=== PATIENT | male | born 1970 | race African-American/Black ===

== ENCOUNTER 2016-06-15 11:51 | Observation (INO) | payer BC ==
--- NOTE | 2016-06-15 12:33 | ER Document Report ---
ED Medical Screen (RME) - General Stated Complaint: CHEST PAIN Notes: Patient complains of left-sided chest pain that started about 2 hours ago, states it feels tight. Denies shortness of breath, nausea, vomiting, or diarrhea. States he has had intermittent episodes of this over the last 2 weeks. Denies recent illness. Denies past medical history. Patient was already given aspirin at urgent care. I have greeted and performed a rapid initial assessment of this patient. A comprehensive ED assessment and evaluation of the patient, analysis of test results and completion of the medical decision making process will be conducted by additional ED providers. - Related Data Allergies/Adverse Reactions: No Known Allergies Allergy (Unverified 06/15/16 12:33) Physical Exam - Vital signs Vitals: Temp Pulse Resp BP Pulse Ox 97.9 F 66 18 144/77 H 100 06/15/16 11:58 06/15/16 11:58 06/15/16 11:58 06/15/16 11:58 06/15/16 11:58 - Cardiovascular Rhythm: Regular Heart sounds: Normal auscultation Course - Vital Signs Vital signs: Temp Pulse Resp BP Pulse Ox 97.9 F 66 18 144/77 H 100 06/15/16 11:58 06/15/16 11:58 06/15/16 11:58 06/15/16 11:58 06/15/16 11:58
[2016-06-15 13:13] LABS: ABSOLUTE EOSINOPHILS # (AUTO) 0.2 10^3/uL (0.0-0.6); ABSOLUTE MONOCYTES (AUTO) 0.3 10^3/uL (0.1-1.4); ABSOLUTE NEUT (AUTO) 1.7 10^3/uL (1.7-8.2); BASOPHILS % (AUTO) 0.9 % (0-2); EOSINOPHILS % (AUTO) 5.2 % (0-6); HEMATOCRIT 42.4 % (37.9-51.0); HGB HCT DIFFERENCE -0.4; LYMPHOCYTES % (AUTO) 46.6 % (13-45); MEAN CORPUSCULAR HEMOGLOBIN 27.7 pg (27.0-33.4); MEAN CORPUSCULAR HGB CONC 32.9 g/dL (32.0-36.0); MEAN CORPUSCULAR VOLUME 84 fl (80-97); MONOCYTES % (AUTO) 7.7 % (3-13); RED BLOOD COUNT 5.04 10^6/uL (4.35-5.55); RED CELL DISTRIBUTION WIDTH 13.7 % (11.5-14.0); SEGMENTED NEUTROPHILS % (AUTO) 39.6 % (42-78); WHITE BLOOD COUNT 4.2 10^3/uL (4.0-10.5)
[2016-06-15 13:30] LABS: ALANINE AMINOTRANSFERASE 36 U/L (21-72); ALKALINE PHOSPHATASE 65 U/L (38-126); ANION GAP 8 (5-19); ASPARTATE AMINO TRANSFERASE 22 U/L (17-59); BILIRUBIN,TOTAL 0.4 mg/dL (0.2-1.3); BLOOD UREA NITROGEN 16 mg/dL (7-20); CALCIUM 9.5 mg/dL (8.4-10.2); CARBON DIOXIDE 26 mmol/L (22-30); CHLORIDE 104 mmol/L (98-107); CREATINE KINASE 198 U/L (55-170); CREATININE RESULT 1.07 mg/dL (0.52-1.25); GLUCOSE 84 mg/dL (75-110); POTASSIUM 4.5 mmol/L (3.6-5.0); SODIUM 138.4 mmol/L (137-145); TOTAL PROTEIN 6.9 g/dL (6.3-8.2)
[2016-06-15 13:42] LABS: CREATINE KINASE MB 1.52 ng/mL (<4.55)
[2016-06-15 13:46] LABS: TROPONIN I < 0.012 ng/mL
[2016-06-15 15:02] LABS: PROTHROMBIN TIME 12.2 SEC (11.4-15.4)
--- NOTE | 2016-06-15 15:35 | ER Document Report ---
ED General - General Chief Complaint: Chest Pain Stated Complaint: CHEST PAIN Mode of Arrival: Ambulatory Information source: Patient Notes: 45-year-old male no previous cardiac history however does have a family history of cardiac problems presents with complaints of left-sided chest tightness associated with exertion. Patient notes symptoms have been intermittent over the past 2 weeks, prior to this he was able to exercise with no difficulty but feels now that it is restricted. Patient does have quite a bit of travel both international and throughout the country TRAVEL OUTSIDE OF THE [place] IN LAST 30 DAYS: No - HPI Onset: Other Onset/Duration: Intermittent Quality of pain: Pressure Severity: Mild Pain Level: 1 Associated symptoms: Chest pain, Shortness of breath Exacerbated by: Walking Relieved by: Denies Similar symptoms previously: No Recently seen / treated by doctor: No - Related Data Allergies/Adverse Reactions: No Known Allergies Allergy (Unverified 06/15/16 12:33) Past Medical History - Social History Smoking Status: Never Smoker Cigarette use (# per day): No Chew tobacco use (# tins/day): No Smoking Education Provided: No Frequency of alcohol use: None Drug Abuse: None Family History: CAD Patient has suicidal ideation: No Patient has homicidal ideation: No Renal/ Medical History: Denies: Hx Peritoneal Dialysis Review of Systems - Review of Systems Notes: REVIEW OF SYSTEMS: CONSTITUTIONAL : Denies fever, chills, or sweats. Denies recent illness. EENT: Denies eye, ear, throat, or mouth pain or symptoms. Denies nasal or sinus congestion or discharge. Denies throat, tongue, or mouth swelling or difficulty swallowing. CARDIOVASCULAR: Admits chest pain RESPIRATORY: Admits shortness of breath GASTROINTESTINAL: Denies abdominal pain or distention. Denies nausea, vomiting , or diarrhea. Denies blood in vomitus, stools, or per rectum. Denies black, tarry stools. Denies constipation. GENITOURINARY: Denies difficulty urinating, painful urination, burning, frequency, blood in urine, or discharge. MUSCULOSKELETAL: Denies back or neck pain or stiffness. Denies joint pain or swelling. SKIN: Denies rash, lesions or sores. HEMATOLOGIC : Denies easy bruising or bleeding. LYMPHATIC: Denies swollen, enlarged glands. NEUROLOGICAL: Denies confusion or altered mental status. Denies passing out or loss of consciousness. Denies dizziness or lightheadedness. Denies headache. Denies weakness or paralysis or loss of use of either side. Denies problems with gait or speech. Denies sensory loss, numbness, or tingling. Denies seizures. PSYCHIATRIC: Denies anxiety or stress. Denies depression, suicidal ideation, or homicidal ideation. ALL OTHER SYSTEMS REVIEWED AND NEGATIVE. Dictation was performed using [employer] voice recognition software PHYSICAL EXAMINATION: GENERAL: Well-appearing, well-nourished and in no acute distress. HEAD: Atraumatic, normocephalic. EYES: Pupils equal round and reactive to light, extraocular movements intact, sclera anicteric, conjunctiva are normal. ENT: Nares patent, oropharynx clear without exudates. Moist mucous membranes. NECK: Normal range of motion, supple without lymphadenopathy LUNGS: Breath sounds clear to auscultation bilaterally and equal. No wheezes rales or rhonchi. HEART: Regular rate and rhythm without murmurs ABDOMEN: Soft, nontender, nondistended abdomen. No guarding, no rebound. No masses appreciated. Musculoskeletal: Normal range of motion, no pitting or edema. No cyanosis. NEUROLOGICAL: Cranial nerves grossly intact. Normal speech, normal gait. Normal sensory, motor exams PSYCH: Normal mood, normal affect. SKIN: Warm, Dry, normal turgor, no rashes or lesions noted. Physical Exam - Vital signs Vitals: Temp Pulse Resp BP Pulse Ox 97.9 F 66 18 144/77 H 100 06/15/16 11:58 06/15/16 11:58 06/15/16 11:58 06/15/16 11:58 06/15/16 11:58 Course - Re-evaluation Re-evalutation: 06/15/16 16:19 Given that chest pain is nonreproducible and is associated with exertion concerns of angina. EKG does note leads 3 and aVF have inverted T wave no ST elevations are noted. Patient will be admitted to hospital service for further evaluation and care - Vital Signs Vital signs: Temp Pulse Resp BP Pulse Ox 97.9 F 66 20 139/95 H 100 06/15/16 11:58 06/15/16 11:58 06/15/16 16:01 06/15/16 16:01 06/15/16 16:01 - Laboratory Result Diagrams: 06/15/16 12:51 06/15/16 12:51 Laboratory results interpreted by me: 06/15/16 06/15/16 12:51 12:51 Seg Neutrophils % 39.6 L Lymphocytes % 46.6 H Creatine Kinase 198 H - Diagnostic Test Radiology reviewed: Image reviewed, Reports reviewed - EKG Interpretation by Me EKG shows normal: Sinus rhythm, [place], Intervals, QRS Complexes - Inverted T wave noted in 3 and aVF Discharge - Discharge Clinical Impression: Chest pain Qualifiers: Chest pain type: unspecified Qualified Code(s): R07.9 - Chest pain, unspecified Condition: Stable Disposition: ADMITTED OBSERVATION Admitting Provider: Hospitalist Unit Admitted: Telemetry
[2016-06-15] MEDS ORDERED: ASPIRIN 81 MG TABLET, CHEWABLE PO ONE (16:27)
[2016-06-15] MEDS ORDERED: ACETAMINOPHEN 325 MG TABLET PO PRN (17:36)
--- NOTE | 2016-06-15 17:50 | PDOC H&P ---
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 Occasionally this causes him to want to sit down and make them go away. He states that his sleep- wake schedule is disturbed by his international travel and that he drinks a lot of caffeine. He states that he exercises regularly and never has chest pain during exercise. He is required to get a cardiac stress test every 5 years for his job and that his last stress test was about 4 years ago. He did have a recent annual physical and EKG that were reportedly normal. He does have a history of coronary disease and peripheral vascular disease in his mother and brother, however they were both smokers. Patient states she's recently been diagnosed with obstructive sleep apnea but has not been placed on CPAP yet. Past Medical History Pulmonary Medical History: Reports: Sleep Apnea Neurological Medical History: Reports: None Endocrine Medical History: Reports: None Renal/ Medical History: Reports: None Malignancy Medical History: Reports: None GI Medical History: Reports: None Psychiatric Medical History: Reports: None Past Surgical History Past Surgical History: Reports: None Social History Information Source: Patient Lives with: Family Smoking Status: Never Smoker Frequency of Alcohol Use: None Hx Recreational Drug Use: No Hx Prescription Drug Abuse: No - Advance Directive Resuscitation Status: Full Code Family History Family History: CAD, Other - Peripheral vascular disease Parental Family History Reviewed: Yes Children Family History Reviewed: Yes Sibling(s) Family History Reviewed.: Yes Medication/Allergy Allergies/Adverse Reactions: No Known Allergies Allergy (Unverified 06/15/16 12:33) Review of Systems Constitutional: ABSENT: chills, fever(s), headache(s), weight gain, weight loss Eyes: ABSENT: visual disturbances Ears: ABSENT: hearing changes Cardiovascular: PRESENT: chest pain, palpitations. ABSENT: dyspnea on exertion , edema, orthropnea Respiratory: ABSENT: cough, hemoptysis Gastrointestinal: ABSENT: abdominal pain, constipation, diarrhea, hematemesis, hematochezia, nausea, vomiting Genitourinary: ABSENT: dysuria, hematuria Musculoskeletal: ABSENT: joint swelling Integumentary: ABSENT: rash, wounds Neurological: ABSENT: abnormal gait, abnormal speech, confusion, dizziness, focal weakness, syncope Psychiatric: ABSENT: anxiety, depression, homidical ideation, suicidal ideation Endocrine: ABSENT: cold intolerance, heat intolerance, polydipsia, polyuria Hematologic/Lymphatic: ABSENT: easy bleeding, easy bruising Physical Exam Vital Signs: Temp Pulse Resp BP Pulse Ox 97.9 F 66 16 139/95 H 99 06/15/16 11:58 06/15/16 11:58 06/15/16 17:00 06/15/16 16:01 06/15/16 17:00 PHYSICAL EXAM: GENERAL: Appears well, no acute distress HEENT: Normocephalic, no scleral icterus, conjunctiva clear, EOEM intact, PERRLA , moist mucous membranes NECK: trachea midline, no thyromegally RESPIRATORY: Clear to auscultation, no wheezes/rhonchi CARDIAC: Regular rate and rhythm, no murmur/singh/rub ABDOMEN: Soft, no distension, no tenderness, no guarding, normal bowel sounds, negative Leon sign RECTAL: deferred : deferred EXTREMITIES: No edema, cyanosis, clubbing MUSCULOSKELETAL: No joint swelling or deformity VASCULAR: normal peripheral pulses NEUROLOGIC: Alert, oriented to person/place/time, normal speech, cranial nerves grossly intact, 5/5 strength in all extremities, tactile sensation intact in all extremities SKIN: No rash, no wounds, no worrisome skin lesions PSYCHIATRIC: Normal mood, normal affect Results Laboratory Results: Labs- All tests 24 hr 06/15/16 06/15/16 06/15/16 12:51 12:51 12:51 WBC 4.2 RBC 5.04 Hgb 14.0 Hct 42.4 MCV 84 MCH 27.7 MCHC 32.9 RDW 13.7 Plt Count 247 Seg Neutrophils % 39.6 L Lymphocytes % 46.6 H Monocytes % 7.7 Eosinophils % 5.2 Basophils % 0.9 Absolute Neutrophils 1.7 Absolute Lymphocytes 2.0 Absolute Monocytes 0.3 Absolute Eosinophils 0.2 Absolute Basophils 0.0 PT INR D-Dimer Sodium 138.4 Potassium 4.5 Chloride 104 Carbon Dioxide 26 Anion Gap 8 BUN 16 Creatinine 1.07 Est GFR ( Amer) > 60 Est GFR (Non-Af Amer) > 60 Glucose 84 Calcium 9.5 Total Bilirubin 0.4 Direct Bilirubin 0.0 AST 22 ALT 36 Alkaline Phosphatase 65 Creatine Kinase 198 H CK-MB (CK-2) 1.52 Troponin I < 0.012 Total Protein 6.9 Albumin 4.0 06/15/16 06/15/16 12:51 12:51 WBC RBC Hgb Hct MCV MCH MCHC RDW Plt Count Seg Neutrophils % Lymphocytes % Monocytes % Eosinophils % Basophils % Absolute Neutrophils Absolute Lymphocytes Absolute Monocytes Absolute Eosinophils Absolute Basophils PT 12.2 INR 0.88 D-Dimer < 0.27 Sodium Potassium Chloride Carbon Dioxide Anion Gap BUN Creatinine Est GFR ( Amer) Est GFR (Non-Af Amer) Glucose Calcium Total Bilirubin Direct Bilirubin AST ALT Alkaline Phosphatase Creatine Kinase CK-MB (CK-2) Troponin I Total Protein Albumin EKG Comments: Sinus rhythm, T-wave inversions in inferior leads. No old EKG for comparison. Impressions: Chest X-Ray 06/15/16 12:33 IMPRESSION: NO ACUTE RADIOGRAPHIC FINDING IN THE CHEST. Assessment & Plan - Diagnosis (1) Chest pain Qualifiers: Chest pain type: unspecified Qualified Code(s): R07.9 - Chest pain, unspecified Is this a current diagnosis for this admission?: YesPlan: Patient will be placed in observation status. Serial cardiac enzymes to rule out MD. Start aspirin. Check lipid panel and initiate statin therapy if indicated. D-dimer is negative. I think given the nature of patient's employment we should probably keep him in the hospital and do a stress test and echocardiogram prior to discharge and return to work. 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 My concern is for transient dysrhythmia given history of obstructive sleep apnea, sleep wake disturbance related to occupation, caffeine use. (3) Obstructive sleep apnea Is this a current diagnosis for this admission?: YesPlan: Patient has not yet been placed on CPAP. - Time Time Spent: 50 to 70 Minutes Anticipated discharge: Home Within: within 72 hours
[2016-06-15] MEDS ORDERED: ENOXAPARIN SODIUM INJ 40 MG/0.4 ML DISP.SYRIN SUBCUT ONE ×2 (19:00→22:30)
[2016-06-15 19:13] LABS: CREATINE KINASE MB 1.19 ng/mL (<4.55)
[2016-06-15 19:29] LABS: TROPONIN I < 0.012 ng/mL
--- NOTE | 2016-06-15 19:40 | EKG REPORT ---
SEVERITY:- BORDERLINE ECG - SINUS RHYTHM BORDERLINE T ABNORMALITIES, DIFFUSE LEADS : Confirmed by: Alphonso Romano 15-Jun-2016 19:40:09
[2016-06-16 01:40] LABS: TROPONIN I < 0.012 ng/mL
[2016-06-16] MEDS: LANSOPRAZOLE 30 MG TAB.RAP.DR PO SCH ×2 (05:31→18:45)
[2016-06-16 06:49] LABS: CHOLESTEROL 192.54 mg/dL (0-200); CREATINE KINASE 193 U/L (55-170); Direct HDL 44 mg/dL (>40); TRIGLYCERIDES 121 mg/dL (<150)
[2016-06-16 06:59] LABS: DIRECT LDL 132 mg/dL (<100)
[2016-06-16 07:03] LABS: TROPONIN I < 0.012 ng/mL
[2016-06-16] MEDS: ENOXAPARIN SODIUM INJ 40 MG/0.4 ML DISP.SYRIN SUBCUT SCH (08:24)
[2016-06-16] MEDS: ASPIRIN 325 MG TABLET, ENT COATED PO SCH (10:57)
--- NOTE | 2016-06-16 20:38 | CONSULTATION REPORT E ---
Consultation Report NAME: JUAN PABLO TRUJILLO : 1970 AGE: 45Y DATE: 06/16/2016 415 A TO: CHERYL VALENZUELA M.D. FROM: JONAH FARFAN Requesting Physician REASON FOR CONSULTATION: Chest pain and tightness and palpitations. 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 The patient with some few, at least a month and a half of symptoms of chest tightness that occurs at rest that lasts for 10 minutes of so associated with palpitations. He said that he had palpitations an hour ago prior to my seeing him in the emergency room prior to his going to the floor bed, but review of the monitor did not show any arrhythmias. The patient states that he exercises regularly but does not have any chest pain or discomfort. He describes the pain as a chest tightness in the left front of the chest and it is not precipitated or increased with exertion. He also has palpitation but without any dizziness or syncope. He has no history of hypertension, no prior history of coronary artery disease. He was recently diagnosed as having obstructive sleep apnea but has not yet gotten a CPAP. Note that the patient drinks a lot of caffeine to keep awake. He denies any PND, orthopnea, shortness of breath or leg edema. There is no dizziness or syncope. There is no TIA or CVA symptoms. PAST MEDICAL HISTORY: Negative for hypertension, negative for diabetes mellitus, negative for coronary artery disease or history of angina or OR. No history of congestive heart failure. No history of thyroid disease, no history of diabetes mellitus, no history of chronic kidney disease, no history of asthma or COPD. The patient does have a history of sleep apnea which is untreated. He has no history of TIA or CVA. There is no history of anxiety and depression. PAST SURGICAL HISTORY: Negative. ALLERGIES: No known allergies. MEDICATIONS: 1. Tylenol 650 mg p.o. q.4 h. p.r.n. 2. Aspirin 325 mg p.o. daily. 3. Lovenox 40 mg subcutaneously q.a.m. 4. Prevacid 30 mg p.o. at 6 a.m. and 1700. SOCIAL HISTORY: The patient does not smoke. There is no history of EtOH abuse. The patient has increased caffeine intake to keep awake. FAMILY HISTORY: Positive for coronary artery disease, peripheral artery disease and hypertension. He states that his mother had an OR at age 41 and at age 51 on the operating table for an operation that was not related to her heart. REVIEW OF SYSTEMS: CONSTITUTIONAL: Denies any fever, chills or rigors. Complains of generalized fatigue, especially when he wakes up in the morning, he feels that he has not had a restful sleep. He feels tired. HEENT: Head: Denies any headaches or head injury. Eyes: No history of amblyopia or diplopia. No history of amaurosis fugax. Ears: No history of vertigo, no history of tinnitus and no history of hearing loss. Nose: No history of hay fever, no history of nose bleeds, no history of nasal polyps. Mouth: No history of altered taste sensation, no history of ulcers in the mouth. Throat: No history of odynophagia or dysphagia. No history of recurrent sore throats. SKIN: No history of pruritus. No history of yellowish discoloration of the skin. No history of psoriasis. No history of skin cancer. NECK: No history of neck pain. No history of enlarged axillary nodes. No goiter. LUNGS: No history of asthma or wheezing. No history of COPD. No history of cough or sputum production. No history of wheezing. No history of pulmonary embolism. No history of hemoptysis. No history of pulmonary embolism. History of sleep apnea diagnosed recently but has not had CPAP placed. CARDIAC: Denies history of hypertension. No history of CAD. No history of congenital heart disease. No history of PND, orthopnea or leg edema. No history of shortness of breath. The patient exercises regularly without symptoms, but the patient's chest tightness occurs at rest along with palpitations. There is no syncope. There is no shortness of breath. RENAL: No history of chronic kidney disease. No history of hematuria, polyuria or dysuria. No history of symptoms of UTI. No history of symptoms of enlarged prostate. GASTROINTESTINAL: No history of GERD. No history of abdominal pain. no history of jaundice. No history of hepatitis. No history of altered bowel movements. No history of GI bleed. MUSCULOSKELETAL: Denies arthritis or collagen vascular disease. CENTRAL NERVOUS SYSTEM: No history of TIA or CVA. No history of gait imbalance. No history of headaches, migraines or seizures. History of sleep apnea as mentioned earlier and patient not on CPAP. PSYCHIATRIC: No history of anxiety or depression. No history of suicidal ideation. VASCULAR: No history of calf or buttock claudication. No history of DVT. HEMATOLOGICAL: No history of anemia. No history of bleeding diathesis. No history of lymphomas. No history of clotting disorders. PHYSICAL EXAMINATION: GENERAL: Patient is mildly obese in no acute distress. VITAL SIGNS: He is afebrile with a temperature of 97.8 degrees Fahrenheit. Pulse is 82 beats per minute. Blood pressure is 127/85, respirations 13 per minute, 02 sats are 92% on room air. HEENT: Head is atraumatic, normocephalic. Eyes: Pupils are equal, round, regular, reactive to light and accommodation. Extraocular movements are normal. There is no conjunctival pallor. There is no scleral icterus. Ears: Tympanic membranes are intact. External auditory canals are clear. Nose: There is no deviated nasal septum. There is no inflammation of the nasal mucous membranes. Mouth: Mucous membranes of the mouth are moist. Tongue is moist. There are no ulcers in the mouth. There is no bleeding from the gums. Throat: There is no redness of the oropharynx. There is no exudate. SKIN: There are no skin lesions. There are no skin rashes. There is no petechia or ecchymosis. NECK: Supple. There is no JVD. There is no lymphadenopathy. Carotids are equal. There is no bruit. There is no goiter. Trachea is central. LUNGS: Clear to auscultation and percussion. HEART: S1 and S2 are heard. There is no S3 gallop. There is no S4 gallop. There is a systolic murmur in the apex with faint radiation to the axilla suggestive of mitral regurgitation. (Question mitral regurgitation severity). ABDOMEN: Soft, slightly obese, nontender. There is no hepatosplenomegaly. Bowel sounds are well heard. EXTREMITIES: Femorals are well felt. There are no femoral bruits. Leg pulses are well felt. There is no DVT or cellulitis. There is no pedal edema. There is no calf tenderness. There is no cyanosis or clubbing. CENTRAL NERVOUS SYSTEM: The patient is conscious, awake, alert, oriented x3 with no focal deficits. PSYCHIATRIC: The patient's judgment and insight are intact. His affect is normal. DIAGNOSTIC TEST RESULTS: The patient's EKG shows sinus rhythm, borderline T-wave abnormalities in diffuse leads. The patient's EKG done today shows sinus rhythm, nonspecific T-wave abnormalities in inferior leads and also in leads V5 and V6. The patient's chest x-ray is negative. The patient's cardiac enzymes have been negative x3. Although his CPK is slightly elevated, his CPK-MB and troponin I's are all negative x3. The patient's sodium is 136.4, potassium 4.5, chloride is 104, CO2 26, the patient's BUN is 16, creatinine 1.07, GFR is greater than 60, glucose 84, calcium is 9.5. His liver function tests are normal. His total protein is 6.9 and his albumin is 4.0. The patient's triglycerides are good at 121, his LDL cholesterol is elevated at 132, his HDL cholesterol is good at 44, his TSH is 1.70. The patient's white count is 4,200, hemoglobin is 14, hematocrit is 42.4, and his platelet count is 247,000. IMPRESSION: 1. Chest pain/tightness, question etiology. Note, the patient has multiple CAD risk factors such as age and strong family of premature coronary artery disease and hyperlipidemia. 2. Palpitations, question etiology. So far there have been no arrhythmias on the monitor. 3. Obstructive sleep apnea. Patient not on CPAP. 4. Hyperlipidemia. 5. Systolic murmur. 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 Also would recommend that the patient have an exercise treadmill stress Cardiolite but in view of the baseline EKG changes, would add Cardiolite to the study. Will follow with you. Discussed this with the patient. 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 Discussed with the hospitalist taking care of the patient. Note: Forty-five minutes spent on this patient with more than 50% of the time spent on direct patient care and also discussions of the EKG findings and the patient's laboratory data and the proposed tests with the patient. Thanking you. DICTATING PHYSICIAN: CHERYL VALENZUELA M.D. [id number] PHY#: [id number] ID: [id number] JOB#: [id number] ACCT: [id number] cc:CHERYL VALENZUELA M.D. >
[2016-06-17] MEDS: LANSOPRAZOLE 30 MG TAB.RAP.DR PO SCH ×2 (05:51→18:09)
--- NOTE | 2016-06-17 06:38 | PDOC PROGRESS REPORT ---
Subjective Progress Note for:: 06/16/16 Subjective:: Patient continues to have intermittent episodes of chest discomfort and palpitations. Patient denies fever, chills, headache, new focal weakness, shortness of breath, abdominal pain, nausea, vomiting, diarrhea, constipation. Physical Exam Vital Signs: Temp Pulse Resp BP Pulse Ox 97.6 F 66 15 118/76 100 06/17/16 04:27 06/17/16 04:27 06/17/16 04:27 06/17/16 04:27 06/17/16 04:27 GENERAL: No acute distress HEENT: Conjunctiva clear, nonicteric, moist mucous membranes, no JVD, midline trachea RESPIRATORY: Clear to auscultation bilaterally, no wheezes, no rhonchi CARDIAC: Regular rate and rhythm, no murmurs/gallops/rubs ABDOMEN: Soft, nondistended, nontender, positive bowel sounds, no rebound, no guarding EXTREMETIES: No edema, cyanosis, clubbing NEUROLOGIC: Alert, oriented to person/place/time, CN's grossly intact, no focal deficits SKIN: No rash, wounds PSYCH: Normal mood, normal affect Results Laboratory Results: 06/16/16 06/16/16 06:20 06:20 Magnesium 2.0 Triglycerides 121 Cholesterol 192.54 LDL Cholesterol Direct 132 H VLDL Cholesterol 24.0 HDL Cholesterol 44 TSH 1.70 06/15/16 06/15/16 06/16/16 18:30 18:30 00:33 Creatine Kinase 203 H 196 H CK-MB (CK-2) 1.19 Troponin I < 0.012 06/16/16 06/16/16 06/16/16 00:33 06:20 06:20 Creatine Kinase 193 H CK-MB (CK-2) 1.20 1.20 Troponin I < 0.012 < 0.012 Impressions: Chest X-Ray 06/15/16 12:33 IMPRESSION: NO ACUTE RADIOGRAPHIC FINDING IN THE CHEST. Assessment & Plan - Diagnosis (1) Chest pain Qualifiers: Chest pain type: unspecified Qualified Code(s): R07.9 - Chest pain, unspecified Is this a current diagnosis for this admission?: YesPlan: Continue aspirin. Start Lipitor 20 mg nightly. D-dimer is negative. I think given the nature of patient's employment we should probably keep him in the hospital and do a stress test and echocardiogram prior to discharge and return to work. Case is discussed with Dr. Kendrick of cardiology and he agrees the patient should have stress test on Saturday prior to discharge. 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 My concern is for transient dysrhythmia given history of obstructive sleep apnea, sleep wake disturbance related to occupation , caffeine use. Dr. Kendrick of cardiology following. (3) Obstructive sleep apnea Is this a current diagnosis for this admission?: YesPlan: Patient has not yet been placed on CPAP. (4) Hypercholesterolemia Is this a current diagnosis for this admission?: YesPlan: Start Lipitor 20 mg nightly. - Time Time Spent with patient: 25-34 minutes Anticipated discharge: Home Within: within 48 hours Disposition: Discharge home on Saturday of stress test negative.
[2016-06-17] MEDS: ASPIRIN 325 MG TABLET, ENT COATED PO SCH (11:04)
[2016-06-17] MEDS: ENOXAPARIN SODIUM INJ 40 MG/0.4 ML DISP.SYRIN SUBCUT SCH (11:06)
--- NOTE | 2016-06-17 16:09 | PDOC PROGRESS REPORT ---
Subjective Progress Note for:: 06/17/16 Subjective:: Patient continues to have intermittent episodes of chest discomfort and palpitations. Patient denies fever, chills, headache, new focal weakness, shortness of breath, abdominal pain, nausea, vomiting, diarrhea, constipation. Physical Exam Vital Signs: Temp Pulse Resp BP Pulse Ox 97.9 F 55 L 20 122/75 100 06/17/16 12:07 06/17/16 12:07 06/17/16 12:07 06/17/16 12:07 06/17/16 12:07 Intake & Output 06/16/16 06/17/16 06/18/16 05:59 06:59 06:59 Intake Total Balance Weight GENERAL: No acute distress HEENT: Conjunctiva clear, nonicteric, moist mucous membranes, no JVD, midline trachea RESPIRATORY: Clear to auscultation bilaterally, no wheezes, no rhonchi CARDIAC: Regular rate and rhythm, no murmurs/gallops/rubs ABDOMEN: Soft, nondistended, nontender, positive bowel sounds, no rebound, no guarding EXTREMETIES: No edema, cyanosis, clubbing NEUROLOGIC: Alert, oriented to person/place/time, CN's grossly intact, no focal deficits SKIN: No rash, wounds PSYCH: Normal mood, normal affect Results Laboratory Results: 06/15/16 06/15/16 06/16/16 18:30 18:30 00:33 Creatine Kinase 203 H 196 H CK-MB (CK-2) 1.19 Troponin I < 0.012 06/16/16 06/16/16 06/16/16 00:33 06:20 06:20 Creatine Kinase 193 H CK-MB (CK-2) 1.20 1.20 Troponin I < 0.012 < 0.012 Impressions: Chest X-Ray 06/15/16 12:33 IMPRESSION: NO ACUTE RADIOGRAPHIC FINDING IN THE CHEST. Assessment & Plan - Diagnosis (1) Chest pain Qualifiers: Chest pain type: unspecified Qualified Code(s): R07.9 - Chest pain, unspecified Is this a current diagnosis for this admission?: YesPlan: Continue aspirin, Lipitor 20 mg nightly. D-dimer is negative. I think given the nature of patient's employment we should probably keep him in the hospital and do a stress test and echocardiogram prior to discharge and return to work. Case is discussed with Dr. Kendrick of cardiology and he agrees the patient should have stress test on Saturday prior to discharge. (2) Palpitations Is this a current diagnosis for this admission?: YesPlan: Telemetry monitoring shows sinus rhythm throughout entire hospitalization with the exception of 6 beats of atrial ectopy. Rhythm strip is reviewed with cardiology. Cardiology states that we need to have patient treated for obstructive sleep apnea and decrease/discontinue caffeine or other stimulants. He will need to follow-up as an outpatient with cardiology and if symptoms continue could consider outpatient event monitor. Could also consider outpatient addition of beta mat if symptoms persist, however resting heart rate is in the low 60s. Dr. Kendrick of cardiology following. (3) Obstructive sleep apnea Is this a current diagnosis for this admission?: YesPlan: Patient has not yet been placed on CPAP. (4) Hypercholesterolemia Is this a current diagnosis for this admission?: YesPlan: Lipitor 20 mg nightly. - Time Time Spent with patient: 25-34 minutes Anticipated discharge: Home Within: within 24 hours
--- NOTE | 2016-06-17 20:17 | EKG REPORT ---
SEVERITY:- ABNORMAL ECG - SINUS RHYTHM PROBABLE LEFT ATRIAL ABNORMALITY ABNRM R PROG, CONSIDER ASMI OR LEAD PLACEMENT NONSPECIFIC T ABNORMALITIES, INFERIOR LEADS : Confirmed by: Alphonso Romano 17-Jun-2016 20:16:38
--- NOTE | 2016-06-17 20:28 | PROGRESS NOTE E ---
Progress Note NAME: JUAN PABLO TRUJILLO : 1970 AGE: 45Y DATE: 06/17/2016 ROOM: 415 SUBJECTIVE: The patient continues to have intermittent chest tightness and also palpitations. On one of those episodes of palpitations, the patient had run of premature atrial contractions without being at a fast rate. This is what the patient is feeling. He denies any PND or orthopnea. There is no sustained SVT or wide complex tachycardia or ventricular tachycardia seen. The patient denies any shortness of breath. There is no PND or orthopnea. There is no leg edema. There is no CVA tenderness symptoms. OBJECTIVE: VITAL SIGNS: He is afebrile. Temperature is 97.9 degrees Fahrenheit, pulse is 65 beats/minute, blood pressure is 122/74, respirations are 20 per minute, O2 sats are 100% on room air. GENERAL: The patient is mildly obese in no acute distress. HEENT: Normocephalic, atraumatic. Pupils are equal, round, and reactive to light and accommodation. Extraocular movements are normal. There is no conjunctival pallor. There is no scleral icterus. ENT is negative. NECK: Supple. There is no JVD. Carotids are equal. There is no bruit. Trachea is central. There is no goiter. There is lymphadenopathy. LUNGS: Clear to auscultation. HEART: S1 and S2 is heard. There is no S3 gallop. There is no S4 gallop. There is systolic murmur at the left sternal border of the apex. There is no rub. ABDOMEN: Soft, nontender. There is no hepatosplenomegaly. Bowel sounds are well heard. There are no tender areas or masses. EXTREMITIES: Femorals are well felt. There are no femoral bruits. Leg pulses are well felt. There is no pedal edema. There is no DVT or cellulitis. There is no calf tenderness. There is no cyanosis or clubbing. CENTRAL NERVOUS SYSTEM: The patient is conscious, awake, alert, oriented x3 with no focal deficits. PSYCHIATRIC: The patient's judgment and insight are intact. His affect is normal. ASSESSMENT: 1. CHEST PAIN/TIGHTNESS, QUESTION ETIOLOGY. The patient has cardiac/CAD risk factors such as age and strong family history of coronary artery disease and hyperlipidemia. 2. PALPITATIONS, MOST LIKELY TO PREMATURE ATRIAL CONTRACTIONS. SO FAR NO SIGNIFICANT ARRHYTHMIA HAS BEEN IDENTIFIED. 3. OBSTRUCTIVE SLEEP APNEA. The patient not on CPAP. Suspect with the patient starting to wear CPAP, the patient's frequency APC's will resolve. 4. HYPERLIPIDEMIA. 5. SYSTOLIC MURMUR. RECOMMENDATIONS: I agree with starting the patient on statin. The side effects suggest multiple liver sides that have been discussed with the patient. 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 We will get an echocardiogram and also we will get the patient to do an exercise treadmill Cardiolite stress test tomorrow morning. All of this has been discussed with the patient including the risks and benefits and procedure of stress testing. Note 40 minutes spent on the patient with more than 50% of the time spent on direct patient care. Review of the patient's medication list and also discussions with the patient and coordinating care with other physicians on the case. We will follow with you. We will discuss the patient's echocardiogram findings when available. DICTATING PHYSICIAN: CHERYL VALENZUELA M.D. [id number] GERARDO#: [id number] ID: [id number] JOB#: [id number] ACCT: [id number] cc: >
[2016-06-17] MEDS ORDERED: ATORVASTATIN CALCIUM 20 MG TABLET PO SCH (22:00)
[2016-06-18] MEDS: LANSOPRAZOLE 30 MG TAB.RAP.DR PO SCH (07:03)
--- NOTE | 2016-06-18 10:37 | XCELERA REPORT ---
[address] [address] Transthoracic Echocardiogram Report Name: JUAN PABLO TRUJILLO Age: 45 yrs Gender: Male : 1970 Patient Status: Inpatient Patient Location: 4N\S\415\S\A Study Date: 06/17/2016 02:01 PM Height: 66 in Weight: 200 lb BSA: 2.0 m2 Procedure: A two-dimensional transthoracic echocardiogram with color flow and Doppler was performed. The study was technically adequate with some images being suboptimal in quality. Reason For Study: chest pain, palpitations History: chest pain, palpitations. Ordering Physician: JONAH FARFAN Performed By: Favian Hernandez Interpretation Summary The left ventricle is normal in size. There is mild concentric left ventricular hypertrophy. LV EF is > than 65% Left ventricular systolic function is normal. Doppler measurements suggest impaired left ventricular relaxation, which is associated with grade I/IV or mild diastolic dysfunction The left ventricular wall motion is normal. There is no thrombus. There is no ventricular septal defect visualized. The right ventricle is normal in size and function. The right atrium is normal. Upper normal LA size(38 mm ). The interatrial septum is intact with no evidence for an atrial septal defect. There is no evidence of mitral valve prolapse. There is no vegetation seen on the mitral valve. There is no mitral valve stenosis. There is a trace amount of mitral regurgitation The aortic valve is normal in structure and functions normally The aortic valve is trileaflet. The aortic valve opens well. There is no aortic valve stenosis There is no LVOT obstruction. No aortic regurgitation is present. There is no tricuspid stenosis. There is a trace amount of tricuspid regurgitation Right ventricular systolic pressure is normal. RVSP is 24 mm of Hg , with RA mean of 5. There is no pulmonic valvular stenosis. There is a trace amount of pulmonic regurgitation There is no pericardial effusion. MMode/2D Measurements \T\ Calculations RVDd: 3.1 cm LVIDd: 4.7 cm FS: 46.0 % Ao root diam: 3.1 cm IVSd: 1.2 cm LVIDs: 2.5 cm EDV(Teich): 102.9 ml LVPWd: 1.3 cm ESV(Teich): 23.3 ml Ao root area: 7.3 cm2 EF(Teich): 77.3 % LA dimension: 4.1 cm Doppler Measurements \T\ Calculations MV E max jaden: MV P1/2t max jaden: Ao V2 max: LV V1 max P.7 cm/sec 72.1 cm/sec 136.4 cm/sec 5.3 mmHg MV A max jaden: MV P1/2t: 49.0 msec Ao max PG: LV V1 max: 48.2 cm/sec 7.4 mmHg 114.6 cm/sec MV E/A: 1.5 MVA(P1/2t): 4.5 cm2 MV dec slope: 431.1 cm/sec2 MV dec time: 0.16 sec PA V2 max: PI end-d jaden: TR max jaden: 88.4 cm/sec 63.0 cm/sec 215.3 cm/sec PA max PG: TR max P.1 mmHg 18.5 mmHg Left Ventricle The left ventricle is normal in size. There is mild concentric left ventricular hypertrophy. LV EF is > than 65%. Left ventricular systolic function is normal. Doppler measurements suggest impaired left ventricular relaxation, which is associated with grade I/IV or mild diastolic dysfunction. The left ventricular wall motion is normal. There is no thrombus. There is no ventricular septal defect visualized. Right Ventricle The right ventricle is normal in size and function. Atria The right atrium is normal. Upper normal LA size(38 mm ). The interatrial septum is intact with no evidence for an atrial septal defect. Mitral Valve There is no evidence of mitral valve prolapse. There is no vegetation seen on the mitral valve. There is no mitral valve stenosis. There is a trace amount of mitral regurgitation. Aortic Valve The aortic valve is normal in structure and functions normally. The aortic valve is trileaflet. The aortic valve opens well. There is no aortic valvular vegetation. There is no aortic valve stenosis. There is no LVOT obstruction. No aortic regurgitation is present. Tricuspid Valve There is no tricuspid stenosis. There is a trace amount of tricuspid regurgitation. Right ventricular systolic pressure is normal. RVSP is 24 mm of Hg , with RA mean of 5. Pulmonic Valve There is no pulmonic valvular stenosis. There is a trace amount of pulmonic regurgitation. Great Vessels The aortic root is normal size. Effusions There is no pericardial effusion. : JONAH FARFAN Lakshmi
[2016-06-18] MEDS: ENOXAPARIN SODIUM INJ 40 MG/0.4 ML DISP.SYRIN SUBCUT SCH (11:07)
[2016-06-18] MEDS: ASPIRIN 325 MG TABLET, ENT COATED PO SCH (11:08)
--- NOTE | 2016-06-18 15:08 | PDOC DISCHARGE SUMMARY ---
General - Admit/Disc Date/PCP Admission Date/Primary Care Provider: 06/15/16 17:36 Discharge Date: 06/18/16 - Discharge Diagnosis (1) Chest pain Is this a current diagnosis for this admission?: Yes (2) Palpitations Is this a current diagnosis for this admission?: Yes (3) Obstructive sleep apnea Is this a current diagnosis for this admission?: Yes (4) Hypercholesterolemia Is this a current diagnosis for this admission?: Yes - Additional Information Resuscitation Status: Full Code Discharge Diet: Cardiac Discharge Activity: Activity As Tolerated Home Medications: No Home Medications 06/15/16 History of Present Illness Patient complains of: Chest pain History of Present Illness: JUAN PABLO TRUJILLO is a 45 year old male 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 Occasionally this causes him to want to sit down and make them go away. He states that his sleep- wake schedule is disturbed by his international travel and that he drinks a lot of caffeine. He states that he exercises regularly and never has chest pain during exercise. He is required to get a cardiac stress test every 5 years for his job and that his last stress test was about 4 years ago. He did have a recent annual physical and EKG that were reportedly normal. He does have a history of coronary disease and peripheral vascular disease in his mother and brother, however they were both smokers. Patient states she's recently been diagnosed with obstructive sleep apnea but has not been placed on CPAP yet. Hospital Course Hospital Course: Patient was omitted for chest pain and palpitations. He ruled out for acute NV by serial cardiac enzymes. Telemetry monitoring showed occasional atrial ectopy. Patient had negative Cardiolite stress test per verbal report from Dr. Kendrick (official report not transcribed at time of this dictation). Echocardiogram showed normal ejection fraction, grade 1/4 diastolic dysfunction , no significant valvular disease. Cholesterol was mildly elevated. Patient declined statin and stated he would perform better lifestyle modifications. Patient is advised to decrease caffeine intake, have sleep apnea treated with CPAP, and follow cardiac diet. Physical Exam Vital Signs: Temp Pulse Resp BP Pulse Ox 97.7 F 59 L 16 128/78 H 100 06/18/16 07:54 06/18/16 07:54 06/18/16 07:54 06/18/16 07:54 06/18/16 07:54 Intake & Output 06/17/16 06/18/16 06/19/16 06:59 06:59 06:59 Intake Total 1280 Balance 1280 Weight 90.9 kg GENERAL: No acute distress HEENT: Conjunctiva clear, nonicteric, moist mucous membranes, no JVD, midline trachea RESPIRATORY: Clear to auscultation bilaterally, no wheezes, no rhonchi CARDIAC: Regular rate and rhythm, no murmurs/gallops/rubs ABDOMEN: Soft, nondistended, nontender, positive bowel sounds, no rebound, no guarding EXTREMETIES: No edema, cyanosis, clubbing NEUROLOGIC: Alert, oriented to person/place/time, CN's grossly intact, no focal deficits SKIN: No rash, wounds PSYCH: Normal mood, normal affect Results Laboratory Results: 06/15/16 06/15/16 06/16/16 18:30 18:30 00:33 Creatine Kinase 203 H 196 H CK-MB (CK-2) 1.19 Troponin I < 0.012 06/16/16 06/16/16 06/16/16 00:33 06:20 06:20 Creatine Kinase 193 H CK-MB (CK-2) 1.20 1.20 Troponin I < 0.012 < 0.012 Labs- Last Values WBC 4.2 10^3/uL (4.0-10.5) 06/15/16 12:51 RBC 5.04 10^6/uL (4.35-5.55) 06/15/16 12:51 Hgb 14.0 g/dL (13.5-17.0) 06/15/16 12:51 Hct 42.4 % (37.9-51.0) 06/15/16 12:51 MCV 84 fl (80-97) 06/15/16 12:51 MCH 27.7 pg (27.0-33.4) 06/15/16 12:51 MCHC 32.9 g/dL (32.0-36.0) 06/15/16 12:51 RDW 13.7 % (11.5-14.0) 06/15/16 12:51 Plt Count 247 10^3/uL (150-450) 06/15/16 12:51 Seg Neutrophils % 39.6 % (42-78) L 06/15/16 12:51 Lymphocytes % 46.6 % (13-45) H 06/15/16 12:51 Monocytes % 7.7 % (3-13) 06/15/16 12:51 Eosinophils % 5.2 % (0-6) 06/15/16 12:51 Basophils % 0.9 % (0-2) 06/15/16 12:51 Absolute Neutrophils 1.7 10^3/uL (1.7-8.2) 06/15/16 12:51 Absolute Lymphocytes 2.0 10^3/uL (0.5-4.7) 06/15/16 12:51 Absolute Monocytes 0.3 10^3/uL (0.1-1.4) 06/15/16 12:51 Absolute Eosinophils 0.2 10^3/uL (0.0-0.6) 06/15/16 12:51 Absolute Basophils 0.0 10^3/uL (0.0-0.2) 06/15/16 12:51 PT 12.2 SEC (11.4-15.4) 06/15/16 12:51 INR 0.88 06/15/16 12:51 D-Dimer < 0.27 ug/mL (0.00-0.50) 06/15/16 12:51 Sodium 138.4 mmol/L (137-145) 06/15/16 12:51 Potassium 4.5 mmol/L (3.6-5.0) 06/15/16 12:51 Chloride 104 mmol/L (98-107) 06/15/16 12:51 Carbon Dioxide 26 mmol/L (22-30) 06/15/16 12:51 Anion Gap 8 (5-19) 06/15/16 12:51 BUN 16 mg/dL (7-20) 06/15/16 12:51 Creatinine 1.07 mg/dL (0.52-1.25) 06/15/16 12:51 Est GFR ( Amer) > 60 (>60) 06/15/16 12:51 Est GFR (Non-Af Amer) > 60 (>60) 06/15/16 12:51 Glucose 84 mg/dL (75-110) 06/15/16 12:51 Calcium 9.5 mg/dL (8.4-10.2) 06/15/16 12:51 Magnesium 2.0 mg/dL (1.6-2.3) 06/16/16 06:20 Total Bilirubin 0.4 mg/dL (0.2-1.3) 06/15/16 12:51 Direct Bilirubin 0.0 mg/dL (0.0-0.3) 06/15/16 12:51 AST 22 U/L (17-59) 06/15/16 12:51 ALT 36 U/L (21-72) 06/15/16 12:51 Alkaline Phosphatase 65 U/L (38-126) 06/15/16 12:51 Creatine Kinase 193 U/L (55-170) H 06/16/16 06:20 CK-MB (CK-2) 1.20 ng/mL (<4.55) 06/16/16 06:20 Troponin I < 0.012 ng/mL 06/16/16 06:20 Total Protein 6.9 g/dL (6.3-8.2) 06/15/16 12:51 Albumin 4.0 g/dL (3.5-5.0) 06/15/16 12:51 Triglycerides 121 mg/dL (<150) 06/16/16 06:20 Cholesterol 192.54 mg/dL (0-200) 06/16/16 06:20 LDL Cholesterol Direct 132 mg/dL (<100) H 06/16/16 06:20 VLDL Cholesterol 24.0 mg/dL (10-31) 06/16/16 06:20 HDL Cholesterol 44 mg/dL (>40) 06/16/16 06:20 TSH 1.70 uIU/mL (0.47-4.68) 06/16/16 06:20 Impressions: Chest X-Ray 06/15/16 12:33 IMPRESSION: NO ACUTE RADIOGRAPHIC FINDING IN THE CHEST. Qualifiers PATEINT BEING DISCHARGED WITH ANY OF THE FOLLOWING DIAGNOSIS?: No Plan Time Spent: Less than 30 Minutes
[2016-06-18 15:41] VITALS: BP 114/73
--- NOTE | 2016-06-18 18:44 | DRAGON STRESS TEST REPORT ---
Exercise EKG treadmill Cardiolite stress test using SPECT. Data procedure: 06/18/2016 Ordering Provider: Dr. Rosalba Kendrick/Dr. Alfonso De Luna. Indication: Chest pain and palpitations. Coronary risk factors: Age, hyperlipidemia, and family history of coronary artery. Disease Significant physical findings prior to stress testing show a blood pressure of 132/76, and a heart rate of 68 beats per minute. Auscultation of the heart shows normal S1 and S2.No S3 or S4 gallops. Systolic murmur in the left sternal border and apex. Lungs are clear to auscultation and percussion. Resting 12-lead EKG: Sinus Rhythm. T inversion in leads V4 to V6 and also in lead 3 and aVF. Procedure: The patient was excised on a standard Karthik protocol. . The patient walked a total of 10 minutes and 40 seconds on this protocol and reached a peak heart rate of 176 beats per minute, which is 101 % of maximum predicted heart rate for age. This is at an excellent workload of 13.4 METS. The test was stopped because of achieving more than 100% of his maximum predicted heart rate for age.. The patient described no symptoms of chest pain/ discomfort, and was noted shortness of breath or palpitations. Exercise EKG's show: In the later part of stage III and also in stage IV there was some 1-[address] segment segment depression in leads V5 to V6, but there was a lot of artifacts. Also immediately at recovery this segment ST segments went back to baseline. Hence I do not think that this represents ischemia, is more due to an artifact. Arrhythmias seen: None. The blood pressure response was normal.. At peak exercise the blood pressure was 183/70 millimeters of Hg. The double product was 32.2 K. Summary of findings and interpretation: 1. No chest pain or chest discomfort symptoms reproduced. 2. I do not think that there is EKG evidence of ischemia in the form of ST segment depression.. The transient ST segment depression was most likely secondary to artifact, since these EKGs did have artifacts. 3. Normal blood pressure response. 4. No arrhythmias seen. 5. Excellent exercise tolerance, excellent aerobic capacity. Diagnostic treadmill stress test most likely negative for ischemia by EKG criteria. Recommendations: Correlate with nuclear Cardiolite images. Nuclear data: At rest the patient was given 13.60 millicuries of technetium 99 sestamibi, and as per protocol rest none gated SPECT images were obtained. The patient was exercised on a treadmill [see exercise physiology]. One minute prior to termination of exercise, 40.0 millicuries of technetium and there sestamibi was injected intravenously. As per protocol stress gated images were obtained. Impression: Review of images show that all segments of the myocardium had normal perfusion at rest, and normal perfusion post exercise. All segments of the myocardium had normal motion, contraction, and thickening by gated study. T. I D. ratio was 0.86. The computer read rest and stress left ventricular ejection fractions were 58 % and 60 %respectively. Visually both the ejection fractions were normal in excess of 60%. Conclusions: 1. No clinical symptoms of exercise-induced myocardial ischemia at a peak heart rate of 176 beats per minute, patient having achieved 101 % of maximum predicted heart rate for age, at a workload of 13.4 METS. 2. Most likely no EKG evidence of exercise-induced myocardial ischemia. 3. No arrhythmias seen. 4. No scintigraphic evidence of exercise-induced myocardial ischemia. 5. No scintigraphic evidence of myocardial infarction/scar. Recommendations Aggressive coronary risk factor modification, and treatment of underlying comorbidities MTDD
== END 2016-06-18 16:12 | disposition home or self-care (01) ==
LOC: ER 11:51 → EH 16:22 → UNDOADMOB 16:22 → EH 17:36 → 4N 06-16 15:45
PROVIDERS: ADMIT Family Medicine; ATTEND Family Medicine
DX: R07.9 Chest pain, unspecified (principal); R00.2 Palpitations; G47.33 Obstructive sleep apnea (adult) (pediatric); E78.00 Pure hypercholesterolemia, unspecified; R01.1 Cardiac murmur, unspecified
CPT/HCPCS: 93005 ×2; 99285; 36415 ×2; 82553 ×2; 82550 ×2; 83735; 84443; 85025; 85610; 80053; 84484 ×2; 85379; 80061; 93306; 93017; 71010; 78452; 93010 ×2; G0378 ×4; A9500; J3490 ×4; Q9969